=== PATIENT | male | born 1990 | race Caucasian/White ===

== ENCOUNTER 2017-10-20 11:04 | Emergency (ER) | payer OTHER ==
[2017-10-20 11:11] VITALS: BP 131/75; PULSE 80; TEMP 98; BMI 27.6
[2017-10-20] MEDS ORDERED: ACETAMINOPHEN 325 MG TABLET (FP) PO ONE (12:04)
--- NOTE | 2017-10-20 12:04 | PDOC ---
History of Present Illness - General Chief Complaint: Laceration Stated Complaint: RT FINGER LACERATION Time Seen by Provider: 10/20/17 11:18 History Source: Patient Exam Limitations: No Limitations - History of Present Illness Initial Comments: 10/20/17 13:17 Pt. is a 27 y/o M with no PMH who presents to the ED after getting his R first finger caught in a car door. States that the finger hurts and the nail bed is bleeding. Pt is L hand dominant. Tetanus shot is UTD. Past History - Travel Traveled outside of the country in the last 30 days: No Close contact w/someone who was outside of country & ill: No - Past Medical History Allergies/Adverse Reactions: Allergies Allergy/AdvReac Type Severity Reaction Status Date / Time No Known Allergies Allergy Verified 10/20/17 11:07 Home Medications: Ambulatory Orders NK [No Known Home Medication] 10/20/17 - Suicide/Smoking/Psychosocial Hx Smoking History: Never smoked Hx Alcohol Use: No Drug/Substance Use Hx: No Review of Systems - Review of Systems Able to Perform ROS?: Yes Comments:: 10/20/17 13:20 CONSTITUTIONAL: Absent: fever, chills, diaphoresis, generalized weakness, malaise, loss of appetite MUSCULOSKELETAL: Present: R 2nd finger swelling Absent: myalgia, arthralgia, joint swelling SKIN: Present: bleeding nail bed with nail laceration Absent: rash, itching, pallor NEUROLOGIC: Absent: headache, focal weakness or paresthesias, dizziness, unsteady gait, seizure, mental status changes, bladder or bowel incontinence PSYCHIATRIC: Absent: anxiety, depression, suicidal or homicidal ideation, hallucinations. Is the patient limited Faroese proficient: No *Physical Exam - Vital Signs Last Vital Signs Temp Pulse Resp BP Pulse Ox 98 F 80 16 131/75 100 10/20/17 11:08 10/20/17 11:08 10/20/17 11:08 10/20/17 11:08 10/20/17 11:08 - Physical Exam Comments: 10/20/17 13:20 GENERAL: The patient is awake, alert, and fully oriented, in no acute distress. HEAD: Normal with no signs of trauma. EYES: Pupils equal, round and reactive to light, extraocular movements intact, sclera anicteric, conjunctiva clear. EXTREMITIES: Normal range of motion, no edema. NEUROLOGICAL: Normal speech, normal gait. PSYCH: Normal mood, normal affect. SKIN: R 2nd fingernail with laceration to body of the nail. Nail remains intact. No avulsion to then nail bed. Pt. able to flex and extend finger at DIP and PIP joints with out compromise of nail bed. Warm, Dry, normal turgor, no rashes or lesions noted. Medical Decision Making - Medical Decision Making 10/20/17 14:29 Pt. is a 27 y/o M with no PMH who presents to the ED with a bleeding R 2nd finger nail. Digital block applied. Laceration to main body of fingernail without compromise to the nail bed. Nail bed remains open with flexion and extension of DIP and PIP joint. No obvious laceration to the skin around the nail needing repair. Most likely crush injury under the nail body. Surgicel and pressure dressing applied. Bleeding controlled. X-ray is negative for fracture. Will dc home at this time. Strict return precautions given. Pt. understands all dc instructions and all questions were answered *DC/Admit/Observation/Transfer Diagnosis at time of Disposition: Laceration of finger with damage to nail Qualifiers: Encounter type: initial encounter Finger: index finger Foreign body presence: without foreign body Laterality: right Qualified Code(s): S61.310A - Laceration without foreign body of right index finger with damage to nail, initial encounter - Discharge Dispostion Disposition: HOME Condition at time of disposition: Good Decision to Admit order: No - Referrals Referrals: Isidro Stark MD [Staff Physician] - - Patient Instructions Printed Discharge Instructions: DI for Nail Bed Injury Additional Instructions: You had a cut near your nail bed. The nail is intact at this time Keep the dressing on the nail until it falls off Keep the hand clean and dry. Wear a glove to shower Your x-ray is negative for fracture Return to the ED if the nail bed comes out, if you have worsening pain, are unable to move your finger, or if you have any changes in your symptoms. Tuviste un uriah cerca de tu lecho ungueal. La ua est intacta en vitaliy momento Mantenga el vendaje en la ua hasta que se caiga Mantenga la mano limpia y seca. Use un guante para ducharse Maeve tracey X son negativos por fractura Vuelva al servicio de urgencias si sale el lecho ungueal, si tiene un empeoramiento del dolor, no puede stain remover el dedo o si tiene algn cambio en los sntomas Print Language: TAIWANESE - Post Discharge Activity Forms/Work/School Notes: Back to Work
[2017-10-20] MEDS ORDERED: ACETAMINOPHEN 325 MG TABLET (FP) ONE (12:10)
== END 2017-10-20 13:29 | disposition home or self-care (01) ==
LOC: JERFT 11:04
PROC: 0HQFXZZ Repair Right Hand Skin, External Approach (ICD-10-PCS; principal; 2017-10-20)
DX: S61.310A Laceration without foreign body of right index finger with damage to nail, initial encounter (principal); W23.1XXA Caught, crushed, jammed, or pinched between stationary objects, initial encounter; Y93.89 Activity, other specified; Y92.410 Unspecified street and highway as the place of occurrence of the external cause
CPT/HCPCS: 73130-TC-RT-FY; 99281-25

== ENCOUNTER 2017-10-29 12:42 | Emergency (ER) | payer OTHER ==
[2017-10-29 13:01] VITALS: BP 135/73; PULSE 74; TEMP 98.4; BMI 27.6
--- NOTE | 2017-10-29 13:33 | PDOC ---
History of Present Illness - General Chief Complaint: Injury Stated Complaint: INJURY Time Seen by Provider: 10/29/17 13:18 History Source: Patient Exam Limitations: No Limitations Past History - Travel Traveled outside of the country in the last 30 days: No Close contact w/someone who was outside of country & ill: No - Past Medical History Allergies/Adverse Reactions: Allergies Allergy/AdvReac Type Severity Reaction Status Date / Time No Known Allergies Allergy Verified 10/29/17 12:58 Home Medications: Ambulatory Orders NK [No Known Home Medication] 10/20/17 CVA: No COPD: No DVT: No Dementia: No - Immunization History Immunization Up to Date: Yes - Suicide/Smoking/Psychosocial Hx Smoking History: Never smoked Have you smoked in the past 12 months: No Information on smoking cessation initiated: No Hx Alcohol Use: No Drug/Substance Use Hx: No Substance Use Type: None *Physical Exam - Vital Signs Last Vital Signs Temp Pulse Resp BP Pulse Ox 98.4 F 74 16 135/73 100 10/29/17 12:58 10/29/17 12:58 10/29/17 12:58 10/29/17 12:58 10/29/17 12:58
--- NOTE | 2017-10-29 13:52 | PDOC ---
History of Present Illness - General Chief Complaint: Injury Stated Complaint: INJURY Time Seen by Provider: 10/29/17 13:18 History Source: Patient Exam Limitations: No Limitations - History of Present Illness Initial Comments: 10/29/17 13:56 Was playing basketball with family, when he fell against a chain link fence that had a small piece of metal protruding. Patient impaled his right chest wall lateral aspect of metal. States did not bleed profusely, has not been swollen, denies any shortness of breath or breathing issue. Occurred: reports: just prior to arrival, this afternoon Severity: reports: mild Pain Location: reports: chest Modifying Factors: improves with: None Loss of Consciousness: no loss of consciousness Associated Symptoms (Fall): denies symptoms Past History - Travel Traveled outside of the country in the last 30 days: No Close contact w/someone who was outside of country & ill: No - Past Medical History Allergies/Adverse Reactions: Allergies Allergy/AdvReac Type Severity Reaction Status Date / Time No Known Allergies Allergy Verified 10/29/17 12:58 Home Medications: Ambulatory Orders NK [No Known Home Medication] 10/20/17 CVA: No COPD: No DVT: No Dementia: No - Immunization History Immunization Up to Date: Yes - Suicide/Smoking/Psychosocial Hx Smoking History: Never smoked Have you smoked in the past 12 months: No Information on smoking cessation initiated: No Hx Alcohol Use: No Drug/Substance Use Hx: No Substance Use Type: None Review of Systems - Review of Systems Able to Perform ROS?: Yes Is the patient limited Romanian proficient: Yes Constitutional: Yes: Symptoms Reported, See HPI HEENTM: Yes: See HPI. No: Symptoms Reported Respiratory: Yes: See HPI. No: Symptoms reported, Cough, Orthopnea, Shortness of Breath ABD/GI: No: Symptoms Reported Integumentary: Yes: Symptoms Reported, See HPI, Other (puncture wound ) Neurological: Yes: See HPI. No: Symptoms reported All Other Systems: Reviewed and Negative *Physical Exam - Vital Signs Last Vital Signs Temp Pulse Resp BP Pulse Ox 98.4 F 74 16 135/73 100 10/29/17 12:58 10/29/17 12:58 10/29/17 12:58 10/29/17 12:58 10/29/17 12:58 - Physical Exam General Appearance: Yes: Nourished, Appropriately Dressed, Apparent Distress, Mild Distress HEENT: positive: PAUL, Normal ENT Inspection, TMs Normal Neck: positive: Supple. negative: Tender Respiratory/Chest: positive: Chest Tender (puncture wound to right lateral chest wall at rib approximate 6,7. No crepitus or step-offs, no active bleeding , no swelling or ecchymoses at site.), Lungs Clear, Normal Breath Sounds ( strong inspiratory expiratory effort without any diminished breath sounds, good aeration throughout.) Gastrointestinal/Abdominal: positive: Normal Bowel Sounds, Soft. negative: Tender Musculoskeletal: positive: Normal Inspection. negative: CVA Tenderness Extremity: positive: Normal Capillary Refill, Normal Inspection, Normal Range of Motion. negative: Tender Integumentary: positive: Normal Color, Warm. negative: Ecchymosis, Bruising Neurologic: positive: training developer II-XII NML intact, Fully Oriented, Alert, Normal Mood/ Affect, Normal Response, Motor Strength 5/5 Procedures - Additional Procedures Progress: 10/29/17 13:55 Wound cleaned with 100 mL of saline, dressed with bacitracin ointment, chest x- ray negative for pneumo or any internal injury. *DC/Admit/Observation/Transfer Diagnosis at time of Disposition: Puncture wound of chest wall Qualifiers: Encounter type: initial encounter Qualified Code(s): S21.93XA - Puncture wound without foreign body of unspecified part of thorax, initial encounter - Discharge Dispostion Disposition: HOME Condition at time of disposition: Stable Decision to Admit order: No - Referrals - Patient Instructions Printed Discharge Instructions: DI for Puncture Wound Additional Instructions: Keep wound clean, replace bacitracin ointment until healed Avoid heavy lifting, strenuous activity or exercise until healed May use ibuprofen or Tylenol for pain relief as needed Return to emergency department for redness, swelling, problems. - Post Discharge Activity Forms/Work/School Notes: Back to Work
== END 2017-10-29 14:26 | disposition home or self-care (01) ==
LOC: JERFT 12:42
DX: S21.131A Puncture wound without foreign body of right front wall of thorax without penetration into thoracic cavity, initial encounter (principal); W26.8XXA Contact with other sharp object(s), not elsewhere classified, initial encounter; Y93.67 Activity, basketball; Y92.310 Basketball court as the place of occurrence of the external cause; Y99.8 Other external cause status
CPT/HCPCS: 71046-TC-FY; 99282-25

== ENCOUNTER 2021-10-30 16:19 | Emergency (ER) | payer SELFPAY ==
[2021-10-30 16:49] VITALS: BP 117/80; PULSE 74; TEMP 98.2; BMI 25.7
[2021-10-30] MEDS ORDERED: SODIUM CHLORIDE 0.9% 500 ML INFUS.BAG IV ONE (18:33)
[2021-10-30 19:37] LABS: URINE APPEARANCE CLEAR; URINE BILIRUBIN NEGATIVE (NEGATIVE); URINE COLOR YELLOW; URINE GLUCOSE (UA) NEGATIVE (NEGATIVE); URINE KETONE NEGATIVE (NEGATIVE); URINE LEUK ESTERASE NEGATIVE (NEGATIVE); URINE NITRITE NEGATIVE (NEGATIVE); URINE PROTEIN NEGATIVE (NEGATIVE); URINE UROBILINOGEN 0.2 mg/dL (0.2-1.0)
[2021-10-30 19:43] LABS: BASO % 0.7 % (0-2.0); EOS % 1.2 % (0-4.5); HEMATOCRIT 48.5 % (35.4-49); HEMOGLOBIN 16.6 GM/dL (11.7-16.9); LYMPH % 29.8 % (8-40); MCH 29.5 pg (25.7-33.7); MCHC 34.1 g/dl (32.0-35.9); MEAN CELL VOLUME 86.5 fl (80-96); MEAN PLT VOLUME 8.6 fl (7.5-11.1); MONO % 8.8 % (3.8-10.2); NEUT % 59.5 % (42.8-82.8); PLATELET COUNT 276 10^3/uL (134-434); RBC 5.61 M/mm3 (4.00-5.60); RDW 12.8 % (11.9-15.9); WHITE BLOOD COUNT 9.1 K/mm3 (4.0-10.0)
[2021-10-30 20:15] LABS: BLOOD UREA NITROGEN 12.9 mg/dL (7-18); CALCIUM 9.5 mg/dL (8.5-10.1)
[2021-10-30 20:16] LABS: ALBUMIN 4.2 g/dl (3.4-5.0)
[2021-10-30 20:18] LABS: CREATININE 1.1 mg/dL (0.55-1.3)
[2021-10-30 20:20] LABS: BILIRUBIN,TOTAL 0.3 mg/dL (0.2-1); TOT PROT 7.6 g/dl (6.4-8.2)
== END 2021-10-30 23:34 | disposition home or self-care (01) ==
LOC: JER 16:19
DX: R10.10 Upper abdominal pain, unspecified (principal)
CPT/HCPCS: 36415; 76705-TC; 80053; 81003; 83690; 85025; 86708; 99284-25